=== PATIENT | male | born 1935 | race African-American/Black ===

== ENCOUNTER 2017-11-12 08:55 | Inpatient (IN) ==
[2017-11-12 10:41] LABS: Basophils % 0.3 % (0.0-0.8); Hematocrit 32.2 VOL% (42.0-52.0); Hemoglobin 10.3 GM/DL (14.0-18.0); Immature Granulocytes % 1.7 %; Immature Granulocytes Absolute 0.18 #; Lymphocytes # 2.3 10*3/uL (1.4-4.0); Lymphocytes % 21.4 % (21.2-54.2); Mean Corpuscular Hemoglobin 28 PG (27-34); Mean Corpuscular Volume 87.5 FL (87-102); Mean Platelet Volume 9.4 FL (9.6-12.0); Monocytes # 1.6 10*3/uL (0.11-0.8); Monocytes % 14.9 % (1.7-12.7); Neutrophils # 6.6 10*3/uL (1.4-7.4); Neutrophils % 61.7 % (38.7-73.9); Platelet Count 217 T/CUMM (130-400); Red Blood Count 3.68 MC/CUMM (3.8-5.5); Red Cell Distribution Width 15.4 % (9.3-17.3); White Blood Count 10.7 T/CUMM (4-12)
[2017-11-12 10:47] LABS: Apearance,Urine Slightly Hazy (Clear); Bilirubin,Urine Negative (Negative); Blood, Urine Small mg/dL (Negative); Glucose,Urine (UA) Negative (Negative); Ketones,Urine Negative (Negative); Mucus,Urine Occasional /LPF (Occasional); Nitrite,Urine Negative (Negative); Protein,Urine 100 MG/DL; RBC,Urine <1 /HPF (0-4); Urine Color Yellow (Yellow); Urine Specific Gravity 1.019 (1.001-1.035); Urine Urobilinogen < 2.0 EU/DL (0.2-1.0); WBC,Urine <1 /HPF (0-6)
[2017-11-12 11:22] LABS: Albumin 2.8 G/DL (3.4-5.0); Bilirubin,Total 0.8 MG/DL (0.2-1.0); Calcium 8.7 MG/DL (8.5-10.1); Osmolality,Calculated 271.1 MOS/KG (273-304); Potassium 4.1 MMOL/L (3.5-5.1); Total Protein 8.3 G/DL (6.4-8.3)
[2017-11-12 12:59] LABS: Immunoglobulin A 323 MG/DL (70-400); Immunoglobulin G 1810 MG/DL (700-1600); Immunoglobulin M 54 MG/DL (40-230)
[2017-11-12] MEDS ORDERED: LACTULOSE 20 GM/30 ML UDCUP PO PRN (13:23)
[2017-11-12] MEDS ORDERED: DOCUSATE SODIUM 100 MG CAPSULE PO PRN (13:23)
[2017-11-12] MEDS ORDERED: ONDANSETRON 4 MG/2 ML VIAL IV PRN (13:23)
[2017-11-12] MEDS ORDERED: MORPHINE 4 MG/1 ML VIAL IV PRN (13:23)
[2017-11-12] MEDS ORDERED: ACETAMINOPHEN 325 MG TABLET PO PRN (13:23)
[2017-11-12] MEDS ORDERED: ENOXAPARIN 40 MG/0.4 ML SYRINGE SUBCUT SCH (13:30)
[2017-11-12 16:26] LABS: Prostate Specific Antigen Diag 1232.3 NG/ML (0-4)
[2017-11-12] MEDS: DEXTROSE 5% NACL 0.45% 1,000 ML IV SCH (17:03)
[2017-11-13 05:15] LABS: Basophils % 0.3 % (0.0-0.8); Hematocrit 27.8 VOL% (42.0-52.0); Hemoglobin 9.1 GM/DL (14.0-18.0); Immature Granulocytes % 1.7 %; Immature Granulocytes Absolute 0.15 #; Lymphocytes # 1.6 10*3/uL (1.4-4.0); Lymphocytes % 17.9 % (21.2-54.2); Mean Corpuscular HGB Conc 32.7 GM/DL (32-36); Mean Corpuscular Hemoglobin 28 PG (27-34); Mean Corpuscular Volume 85.5 FL (87-102); Mean Platelet Volume 10.6 FL (9.6-12.0); Monocytes # 1.2 10*3/uL (0.11-0.8); Monocytes % 13.9 % (1.7-12.7); Neutrophils # 5.8 10*3/uL (1.4-7.4); Neutrophils % 66.2 % (38.7-73.9); Platelet Count 218 T/CUMM (130-400); Red Blood Count 3.25 MC/CUMM (3.8-5.5); Red Cell Distribution Width 15.5 % (9.3-17.3); White Blood Count 8.8 T/CUMM (4-12)
[2017-11-13] MEDS: DEXTROSE 5% NACL 0.45% 1,000 ML IV SCH (05:41)
[2017-11-13 06:06] LABS: Calcium 8.4 MG/DL (8.5-10.1); Osmolality,Calculated 267.4 MOS/KG (273-304); Potassium 4.2 MMOL/L (3.5-5.1)
[2017-11-13 08:24] LABS: Total Protein (Chem) 7.8 G/DL (6.4-8.3)
[2017-11-13 08:26] LABS: Immunoglobulin A (Chem) 323 MG/DL (70-400); Immunoglobulin G (Chem) 1810 MG/DL (700-1600); Immunoglobulin M (Chem) 54 MG/DL (40-230)
[2017-11-13] MEDS: PANTOPRAZOLE 40 MG TABLET PO SCH (09:33)
[2017-11-13 13:15] LABS: Albumin (SPE) 3.4 G/DL (3.2-5.3); Albumin (SPE) Rel % 43.2 %; Alpha 1 (SPE) 0.4 G/DL (0.1-0.4); Alpha 1 (SPE) Rel % 5.7 %; Alpha 2 (SPE) 1.2 G/DL (0.4-1.0); Alpha 2 (SPE) Rel % 15.5 %; Beta (SPE) 1.2 G/DL (0.5-1.1); Beta (SPE) Rel % 14.7 %; Gamma (SPE) 1.6 G/DL (0.7-1.7); Gamma (SPE) Rel % 20.9 %
[2017-11-13] MEDS: SODIUM CHLORIDE 0.9% 1,000 ML IV SCH (16:54)
[2017-11-13] MEDS: TAMSULOSIN 0.4 MG CAPSULE PO SCH (20:39)
[2017-11-13] MEDS: BICALUTAMIDE 50 MG TABLET PO SCH (20:39)
[2017-11-14] MEDS: SODIUM CHLORIDE 0.9% 1,000 ML IV SCH ×2 (02:56→13:34)
[2017-11-14 06:25] LABS: Calcium 8.4 MG/DL (8.5-10.1); Potassium 4.2 MMOL/L (3.5-5.1)
[2017-11-14] MEDS ORDERED: ENOXAPARIN 40 MG/0.4 ML SYRINGE SUBCUT ONE (09:00)
[2017-11-14] MEDS: TAMSULOSIN 0.4 MG CAPSULE PO SCH ×2 (09:34→20:14)
[2017-11-14] MEDS: BICALUTAMIDE 50 MG TABLET PO SCH (09:34)
[2017-11-14] MEDS: PANTOPRAZOLE 40 MG TABLET PO SCH (09:34)
[2017-11-14] MEDS ORDERED: IBUPROFEN 400 MG TABLET PO PRN (17:07)
[2017-11-14] MEDS ORDERED: ACETAMINOPHEN 325 MG TABLET PO PRN (17:08)
[2017-11-14] MEDS ORDERED: cefTRIAXone 1,000 MG in SYRINGE 1 EACH IV SCH (18:00)
[2017-11-14 21:30] LABS: Apearance,Urine CLEAR (Clear); Bilirubin,Urine Negative (Negative); Blood, Urine Small mg/dL (Negative); Glucose,Urine (UA) Negative (Negative); Ketones,Urine Negative (Negative); Mucus,Urine Occasional /LPF (Occasional); Nitrite,Urine Negative (Negative); Protein,Urine 30 MG/DL; RBC,Urine 1 /HPF (0-4); Squamous Epithelial Cell,Urine Occasional /HPF (0-10); Urine Color Yellow (Yellow); Urine Specific Gravity 1.015 (1.001-1.035); WBC,Urine 1 /HPF (0-6)
[2017-11-15] MEDS: SODIUM CHLORIDE 0.9% 1,000 ML IV SCH (01:36)
[2017-11-15 05:51] LABS: Basophils % 0.3 % (0.0-0.8); Eosinophils % 0.5 % (0.00-10.9); Hematocrit 25.6 VOL% (42.0-52.0); Hemoglobin 8.4 GM/DL (14.0-18.0); Immature Granulocytes % 2.3 %; Immature Granulocytes Absolute 0.18 #; Lymphocytes # 1.3 10*3/uL (1.4-4.0); Lymphocytes % 17.1 % (21.2-54.2); Mean Corpuscular HGB Conc 32.8 GM/DL (32-36); Mean Corpuscular Hemoglobin 28 PG (27-34); Mean Corpuscular Volume 86.2 FL (87-102); Mean Platelet Volume 10.5 FL (9.6-12.0); Monocytes % 12.4 % (1.7-12.7); Neutrophils # 5.2 10*3/uL (1.4-7.4); Neutrophils % 67.4 % (38.7-73.9); Platelet Count 203 T/CUMM (130-400); Red Blood Count 2.97 MC/CUMM (3.8-5.5); Red Cell Distribution Width 15.6 % (9.3-17.3); White Blood Count 7.8 T/CUMM (4-12)
[2017-11-15 06:04] LABS: Calcium 8.3 MG/DL (8.5-10.1); Osmolality,Calculated 270.8 MOS/KG (273-304)
[2017-11-15] MEDS ORDERED: MEPERIDINE 50 MG/1 ML VIAL IM ONE (07:00)
[2017-11-15] MEDS ORDERED: TOBRAMYCIN INJ 120 MG in SODIUM CHLORIDE 0.9% 100 ML IV ONE (07:00)
[2017-11-15] MEDS ORDERED: PROMETHAZINE 25 MG/1 ML VIAL IM ONE (07:00)
[2017-11-15] MEDS ORDERED: LIDOCAINE 2% TOP JELLY 20 ML VIAL INTRAURETH ONE (09:47)
[2017-11-15] MEDS: BICALUTAMIDE 50 MG TABLET PO SCH (10:20)
[2017-11-15] MEDS: PANTOPRAZOLE 40 MG TABLET PO SCH (10:21)
[2017-11-15] MEDS: TAMSULOSIN 0.4 MG CAPSULE PO SCH (10:21)
[2017-11-15 14:08] VITALS: BP 111/66
== END 2017-11-15 14:52 | disposition home health service (06) | DRG 723 ==
LOC: N.ED 08:55 → N.EDINP 13:19 → SUATTDRO 13:19 → N.EDINP 15:27 → N.4E 15:55
PROVIDERS: ADMIT Internal Medicine; ATTEND Internal Medicine

== ENCOUNTER 2018-12-18 08:41 | Inpatient (IN) ==
[2018-12-18] MEDS ORDERED: SODIUM CHLORIDE 0.9% 1,000 ML IV STA (09:25)
[2018-12-18] MEDS ORDERED: LEVOFLOXACIN INJ 750 MG in PREMIX 1 EACH IV STA (09:25)
[2018-12-18 09:59] LABS: Basophils # 0.1 10*3/uL (0.0-0.2); Basophils % 0.5 % (0.0-0.8); Eosinophils # 0.1 10*3/uL (0.0-0.87); Eosinophils % 1.2 % (0.00-10.9); Hematocrit 30.6 VOL% (42.0-52.0); Hemoglobin 9.2 GM/DL (14.0-18.0); Lymphocytes # 2.8 10*3/uL (1.4-4.0); Lymphocytes % 28.2 % (21.2-54.2); Mean Corpuscular HGB Conc 30.1 GM/DL (32-36); Mean Corpuscular Volume 98.4 FL (87-102); Mean Platelet Volume 10.5 FL (9.6-12.0); Monocytes % 12.9 % (1.7-12.7); NRBC # 0.03 10*3/uL; Neutrophils % 49.2 % (38.7-73.9); Platelet Count 126 T/CUMM (130-400); Red Blood Count 3.11 MC/CUMM (3.8-5.5); Red Cell Distribution Width 19.2 % (9.3-17.3)
[2018-12-18 10:21] LABS: Alanine Aminotransferase 22 U/L (16-61); Albumin 2.3 G/DL (3.4-5.0); Alkaline Phosphatase 268 U/L (45-117); Aspartate Amino Transferase 98 U/L (0-37); Blood Urea Nitrogen 11 MG/DL (7-18); Calcium 7.8 MG/DL (8.5-10.1); Glucose 96 MG/DL (74-106)
[2018-12-18 10:22] LABS: Band Neutrophils 23 % (0-10); Eosinophils 2 % (0-10); Lymphocytes 14 % (20-55); Platelet Estimate Adequate; Segmented Neutrophils 50 % (50-85); Total Cells Counted 100
[2018-12-18 10:23] LABS: Anisocytosis 1+; Poikilocytosis Slight; Polychromasia Slight; Smudge Cells Few; Tear Drop Cells Few
[2018-12-18] MEDS ORDERED: SODIUM CHLORIDE 0.9% 1,800 ML IV ONE (10:31)
[2018-12-18] MEDS: MEROPENEM 1,000 MG in SYRINGE 1 EACH IV SCH ×2 (11:05→19:31)
[2018-12-18 11:18] LABS: Apearance,Urine CLEAR (Clear); Bilirubin,Urine Negative (Negative); Blood, Urine Large mg/dL (Negative); Glucose,Urine (UA) Negative (Negative); Hyaline Casts,Urine 2 /LPF (0-3); Ketones,Urine 5 mg/dL (Negative); Mucus,Urine Occasional /LPF (Occasional); Nitrite,Urine Negative (Negative); Protein,Urine 100 MG/DL; RBC,Urine 724 /HPF (0-4); Urine Color Yellow (Yellow); Urine Specific Gravity 1.014 (1.001-1.035); Urine Urobilinogen < 2.0 EU/DL (0.2-1.0); WBC,Urine <1 /HPF (0-6)
[2018-12-18] MEDS ORDERED: DIGOXIN 0.5 MG/2 ML AMP IV ONE (12:54)
[2018-12-18] MEDS ORDERED: NOREPINEPHRINE 8 MG in SODIUM CHLORIDE 0.9% 242 ML IV PRN (13:06)
[2018-12-18 13:10] LABS: Risk Ratio 3.59; Thyroid Stimulating Hormone 0.999 uIU/ml (0.358-3.74); VLDL CHOLESTEROL 20.2 MG/DL
[2018-12-18] MEDS ORDERED: ALBUTEROL 2.5 MG/3 ML NEB RESP TX PRN (13:12)
[2018-12-18] MEDS ORDERED: ALUMINUM/MAGNES/SIMETH MAX STR 30 ML UDCUP PO PRN (13:12)
[2018-12-18] MEDS ORDERED: ACETAMINOPHEN 325 MG TABLET PO PRN (13:12)
[2018-12-18] MEDS ORDERED: MAGNESIUM HYDROXIDE SUSP 30 ML UDCUP PO PRN (13:12)
[2018-12-18] MEDS ORDERED: MAGNESIUM SULF RIDER 2 GM in PREMIX 1 EACH IV PRN (13:16)
[2018-12-18] MEDS ORDERED: MAGNESIUM SULF RIDER 4 GM in PREMIX 1 EACH IV PRN (13:16)
[2018-12-18] MEDS: SODIUM CHLORIDE 0.9% 1,000 ML IV SCH ×2 (13:21→22:00)
[2018-12-18] MEDS: PANTOPRAZOLE 40 MG TABLET PO SCH (13:59)
[2018-12-18] MEDS: VANCOMYCIN INJ 1,000 MG in SODIUM CHLORIDE 0.9% 250 ML IV SCH (14:00)
[2018-12-18] MEDS ORDERED: ONDANSETRON 4 MG/2 ML VIAL ONE (14:05)
[2018-12-18] MEDS ORDERED: ONDANSETRON 4 MG/2 ML VIAL IV PRN (14:12)
[2018-12-18] MEDS ORDERED: MORPHINE 4 MG/1 ML VIAL IV PRN (14:12)
[2018-12-18 15:46] LABS: Apearance,Urine CLEAR (Clear); Bilirubin,Urine Negative (Negative); Blood, Urine Large mg/dL (Negative); Glucose,Urine (UA) Negative (Negative); Ketones,Urine Negative (Negative); Mucus,Urine Occasional /LPF (Occasional); Nitrite,Urine Negative (Negative); Protein,Urine Negative; RBC,Urine 174 /HPF (0-4); Urine Color Yellow (Yellow); Urine Specific Gravity 1.011 (1.001-1.035); Urine Urobilinogen < 2.0 EU/DL (0.2-1.0); WBC,Urine 2 /HPF (0-6)
[2018-12-18] MEDS ORDERED: METOPROLOL TARTRATE 5 MG/5 ML VIAL IV ONE (17:47)
[2018-12-18] MEDS: METOPROLOL TARTRATE 25 MG TABLET PO SCH (20:52)
[2018-12-19] MEDS: VANCOMYCIN INJ 1,000 MG in SODIUM CHLORIDE 0.9% 250 ML IV SCH ×2 (01:03→14:59)
[2018-12-19] MEDS: MEROPENEM 1,000 MG in SYRINGE 1 EACH IV SCH ×3 (03:25→18:37)
[2018-12-19 05:45] LABS: Albumin 1.8 G/DL (3.4-5.0); Bilirubin,Total 0.6 MG/DL (0.2-1.0); Calcium 6.9 MG/DL (8.5-10.1); Osmolality,Calculated 273.7 MOS/KG (273-304); Total Protein 5.6 G/DL (6.4-8.3)
[2018-12-19 06:34] LABS: Basophils % 0.3 % (0.0-0.8); Eosinophils # 0.1 10*3/uL (0.0-0.87); Eosinophils % 1.1 % (0.00-10.9); Hematocrit 23.4 VOL% (42.0-52.0); Hemoglobin 7.1 GM/DL (14.0-18.0); Immature Granulocytes % 4.7 %; Immature Granulocytes Absolute 0.36 #; Lymphocytes # 2.2 10*3/uL (1.4-4.0); Lymphocytes % 28.4 % (21.2-54.2); Mean Corpuscular HGB Conc 30.3 GM/DL (32-36); Mean Corpuscular Volume 99.2 FL (87-102); Mean Platelet Volume 10.3 FL (9.6-12.0); Monocytes % 12.5 % (1.7-12.7); Red Blood Count 2.36 MC/CUMM (3.8-5.5); Red Cell Distribution Width 19.4 % (9.3-17.3); White Blood Count 7.6 T/CUMM (4-12)
[2018-12-19 06:36] LABS: Platelet Count 96 T/CUMM (130-400)
[2018-12-19 06:41] LABS: Anisocytosis 1+; Band Neutrophils 11 % (0-10); Eosinophils 1 % (0-10); Lymphocytes 29 % (20-55); Macrocytosis 1+; Metamyelocytes 1 %; Platelet Estimate Decreased; Polychromasia Few; Segmented Neutrophils 45 % (50-85); Total Cells Counted 100
[2018-12-19] MEDS: SODIUM CHLORIDE 0.9% 1,000 ML IV SCH ×2 (07:25→14:59)
[2018-12-19] MEDS ORDERED: SODIUM CHLORIDE 0.9% 1,000 ML IV PRN (08:58)
[2018-12-19] MEDS: PANTOPRAZOLE 40 MG TABLET PO SCH (10:35)
[2018-12-19] MEDS: METOPROLOL TARTRATE 25 MG TABLET PO SCH ×2 (10:35→20:57)
[2018-12-19] MEDS ORDERED: DOCUSATE SODIUM 100 MG CAPSULE PO PRN (19:21)
[2018-12-19] MEDS: POLYETHYLENE GLYCOL POWDER 17 GM PACK PO SCH (20:57)
[2018-12-19] MEDS: BICALUTAMIDE 50 MG TABLET PO SCH (20:57)
[2018-12-19] MEDS: CHOLECALCIFEROL 1,000 UNIT TABLET PO SCH (20:57)
[2018-12-19] MEDS: CALCIUM (CARBONATE) 500 MG TABLET PO SCH (20:58)
[2018-12-20 06:49] LABS: Basophils % 0.5 % (0.0-0.8); Eosinophils # 0.1 10*3/uL (0.0-0.87); Eosinophils % 1.1 % (0.00-10.9); Hematocrit 31.2 VOL% (42.0-52.0); Hemoglobin 9.8 GM/DL (14.0-18.0); Immature Granulocytes % 7.9 %; Immature Granulocytes Absolute 0.59 #; Lymphocytes # 2.1 10*3/uL (1.4-4.0); Lymphocytes % 27.8 % (21.2-54.2); Mean Corpuscular HGB Conc 31.4 GM/DL (32-36); Mean Corpuscular Volume 94.5 FL (87-102); Mean Platelet Volume 10.5 FL (9.6-12.0); Monocytes % 8.9 % (1.7-12.7); Neutrophils % 53.8 % (38.7-73.9); Platelet Count 115 T/CUMM (130-400); Red Cell Distribution Width 18.7 % (9.3-17.3); White Blood Count 7.5 T/CUMM (4-12)
[2018-12-20 07:15] LABS: Calcium 6.9 MG/DL (8.5-10.1); Osmolality,Calculated 270.8 MOS/KG (273-304)
[2018-12-20 07:54] LABS: Band Neutrophils 4 % (0-10); Eosinophils 2 % (0-10); Hypochromasia Slight; Lymphocytes 21 % (20-55); Metamyelocytes 1 %; Nucleated Red Blood Cells 1 (0-5); Platelet Estimate Adequate; Segmented Neutrophils 62 % (50-85); Total Cells Counted 100
[2018-12-20] MEDS: BICALUTAMIDE 50 MG TABLET PO SCH (08:44)
[2018-12-20] MEDS: POLYETHYLENE GLYCOL POWDER 17 GM PACK PO SCH (08:44)
[2018-12-20] MEDS: CHOLECALCIFEROL 1,000 UNIT TABLET PO SCH (08:44)
[2018-12-20] MEDS: METOPROLOL TARTRATE 25 MG TABLET PO SCH (08:44)
[2018-12-20] MEDS: PANTOPRAZOLE 40 MG TABLET PO SCH (08:44)
[2018-12-20] MEDS: CALCIUM (CARBONATE) 500 MG TABLET PO SCH (08:44)
[2018-12-20 11:51] VITALS: BP 109/62
== END 2018-12-20 13:32 | disposition home or self-care (01) | DRG 309 ==
LOC: N.ED 08:41 → N.EDINP 10:53 → SUATTDRO 10:53 → N.ICU 11:50 → N.4E 12-19 19:17
PROVIDERS: ADMIT Internal Medicine; ATTEND Internal Medicine

== ENCOUNTER 2019-01-11 13:29 | Inpatient (IN) ==
[2019-01-11 14:37] LABS: Basophils # 0.1 10*3/uL (0.0-0.2); Basophils % 0.7 % (0.0-0.8); Eosinophils % 0.2 % (0.00-10.9); Hematocrit 30.1 VOL% (42.0-52.0); Hemoglobin 9.2 GM/DL (14.0-18.0); Immature Granulocytes % 16.3 %; Immature Granulocytes Absolute 1.94 #; Mean Corpuscular HGB Conc 30.6 GM/DL (32-36); Mean Platelet Volume 10.3 FL (9.6-12.0); Monocytes % 11.9 % (1.7-12.7); NRBC # 0.15 10*3/uL; Neutrophils % 45.9 % (38.7-73.9); Platelet Count 110 T/CUMM (130-400); Red Blood Count 3.07 MC/CUMM (3.8-5.5); Red Cell Distribution Width 17.6 % (9.3-17.3); White Blood Count 11.9 T/CUMM (4-12)
[2019-01-11 14:51] LABS: Alanine Aminotransferase 87 U/L (16-61); Albumin 2.1 G/DL (3.4-5.0); Alkaline Phosphatase 354 U/L (45-117); Aspartate Amino Transferase 204 U/L (0-37); Blood Urea Nitrogen 19 MG/DL (7-18); Calcium 9.6 MG/DL (8.5-10.1); Glucose 106 MG/DL (74-106); Osmolality,Calculated 276.7 MOS/KG (273-304); Total Protein 7.3 G/DL (6.4-8.3)
[2019-01-11] MEDS ORDERED: LACTATED RINGERS 1,000 ML IV ONE (15:10)
[2019-01-11 15:35] LABS: Apearance,Urine Slightly Hazy (Clear); Bacteria,Urine Occasional /HPF (Few); Bilirubin,Urine Negative (Negative); Blood, Urine Small mg/dL (Negative); Glucose,Urine (UA) Negative (Negative); Ketones,Urine Negative (Negative); Mucus,Urine Occasional /LPF (Occasional); Nitrite,Urine Negative (Negative); Protein,Urine 100 MG/DL; RBC,Urine 17 /HPF (0-4); Squamous Epithelial Cell,Urine Occasional /HPF (0-10); Urine Color Amber (Yellow); WBC,Urine 4 /HPF (0-6)
[2019-01-11] MEDS ORDERED: LEVOFLOXACIN INJ 500 MG in PREMIX 1 EACH IV STA (15:54)
[2019-01-11 16:17] LABS: Band Neutrophils 2 % (0-10); Lymphocytes 31 % (20-55); Segmented Neutrophils 54 % (50-85); Total Cells Counted 100
[2019-01-11 16:19] LABS: Tear Drop Cells 1+
[2019-01-11 16:20] LABS: Microcytosis Slight
[2019-01-11] MEDS ORDERED: ALBUTEROL 2.5 MG/3 ML NEB RESP TX PRN (17:27)
[2019-01-11] MEDS ORDERED: ONDANSETRON 4 MG/2 ML VIAL IV PRN (17:27)
[2019-01-11] MEDS ORDERED: DOCUSATE SODIUM 100 MG CAPSULE PO PRN (17:34)
[2019-01-11] MEDS ORDERED: METOPROLOL TARTRATE 5 MG/5 ML VIAL IV STA (18:11)
[2019-01-11] MEDS ORDERED: LEVALBUTEROL 0.63 MG/3 ML NEB RESP TX PRN (19:00)
[2019-01-11] MEDS ORDERED: SODIUM CHLORIDE 0.9% 1,000 ML IV ONE (19:36)
[2019-01-11] MEDS: SODIUM CHLORIDE 0.9% 1,000 ML IV SCH (21:51)
[2019-01-11] MEDS: PANTOPRAZOLE 40 MG VIAL IV SCH (21:52)
[2019-01-11] MEDS: PIPERACILLIN/TAZOBACTAM 3,375 MG in SODIUM CHLORIDE 0.9% 100 ML IV SCH (21:52)
[2019-01-12] MEDS: PIPERACILLIN/TAZOBACTAM 3,375 MG in SODIUM CHLORIDE 0.9% 100 ML IV SCH ×2 (05:25→12:10)
[2019-01-12 05:57] LABS: Basophils % 0.4 % (0.0-0.8); Eosinophils % 0.1 % (0.00-10.9); Hematocrit 24.9 VOL% (42.0-52.0); Hemoglobin 7.8 GM/DL (14.0-18.0); Immature Granulocytes % 15.4 %; Immature Granulocytes Absolute 1.37 #; Lymphocytes # 1.5 10*3/uL (1.4-4.0); Lymphocytes % 17.3 % (21.2-54.2); Mean Corpuscular HGB Conc 31.3 GM/DL (32-36); Mean Platelet Volume 10.6 FL (9.6-12.0); Monocytes % 10.9 % (1.7-12.7); NRBC # 0.04 10*3/uL; Neutrophils % 55.9 % (38.7-73.9); Platelet Count 84 T/CUMM (130-400); Red Blood Count 2.54 MC/CUMM (3.8-5.5); Red Cell Distribution Width 17.7 % (9.3-17.3); White Blood Count 8.9 T/CUMM (4-12)
[2019-01-12 06:24] LABS: Band Neutrophils 6 % (0-10); Hypochromasia 1+; Lymphocytes 17 % (20-55); Metamyelocytes 3 %; Myelocytes 1 %; Ovalocytes Slight; Segmented Neutrophils 67 % (50-85); Total Cells Counted 100
[2019-01-12 06:25] LABS: Tear Drop Cells Slight
[2019-01-12 06:26] LABS: Atypical Lymphocytes Few; Macrocytosis 1+; Platelet Estimate Decreased
[2019-01-12 06:34] LABS: Risk Ratio 5.68
[2019-01-12 06:42] LABS: Albumin 1.8 G/DL (3.4-5.0); Bilirubin,Total 0.9 MG/DL (0.2-1.0); Calcium 7.9 MG/DL (8.5-10.1); Osmolality,Calculated 276.7 MOS/KG (273-304); Total Protein 6.5 G/DL (6.4-8.3)
[2019-01-12] MEDS: CALCIUM (CARBONATE) 500 MG TABLET PO SCH (08:06)
[2019-01-12] MEDS: CHOLECALCIFEROL 1,000 UNIT TABLET PO SCH (08:06)
[2019-01-12] MEDS: POLYETHYLENE GLYCOL POWDER 17 GM PACK PO SCH (08:06)
[2019-01-12] MEDS: ENOXAPARIN 40 MG/0.4 ML SYRINGE SUBCUT SCH (08:53)
[2019-01-12] MEDS ORDERED: SODIUM CHLORIDE 0.9% 1,000 ML IV PRN (13:56)
[2019-01-12] MEDS ORDERED: fentaNYL 12 MCG/HR PATCH TRANSDERM SCH (14:06)
[2019-01-12] MEDS ORDERED: ACETAMINOPHEN 650 MG SUPP RECTAL PRN (18:17)
[2019-01-12] MEDS: PANTOPRAZOLE 40 MG VIAL IV SCH (21:28)
[2019-01-13] MEDS: SODIUM CHLORIDE 0.9% 1,000 ML IV SCH (05:46)
[2019-01-13 06:18] LABS: Basophils # 0.1 10*3/uL (0.0-0.2); Basophils % 0.9 % (0.0-0.8); Eosinophils % 0.2 % (0.00-10.9); Hematocrit 30.1 VOL% (42.0-52.0); Hemoglobin 9.4 GM/DL (14.0-18.0); Immature Granulocytes % 11.9 %; Immature Granulocytes Absolute 1.14 #; Lymphocytes # 1.6 10*3/uL (1.4-4.0); Lymphocytes % 16.5 % (21.2-54.2); Mean Corpuscular HGB Conc 31.2 GM/DL (32-36); Mean Corpuscular Volume 93.8 FL (87-102); Mean Platelet Volume 11.1 FL (9.6-12.0); Monocytes % 9.1 % (1.7-12.7); NRBC # 0.17 10*3/uL; Neutrophils % 61.4 % (38.7-73.9); Platelet Count 92 T/CUMM (130-400); Red Blood Count 3.21 MC/CUMM (3.8-5.5); Red Cell Distribution Width 18.1 % (9.3-17.3); White Blood Count 9.6 T/CUMM (4-12)
[2019-01-13 06:38] LABS: Band Neutrophils 16 % (0-10); Hypochromasia 1+; Lymphocytes 17 % (20-55); Myelocytes 3 %; Nucleated Red Blood Cells 1 (0-5); Platelet Estimate Decreased; Segmented Neutrophils 58 % (50-85); Total Cells Counted 100
[2019-01-13 06:39] LABS: Microcytosis Slight; Ovalocytes Slight
[2019-01-13 06:40] LABS: Albumin 1.8 G/DL (3.4-5.0); Bilirubin,Total 1.4 MG/DL (0.2-1.0); Osmolality,Calculated 285.1 MOS/KG (273-304); Total Protein 6.3 G/DL (6.4-8.3)
[2019-01-13] MEDS: ENOXAPARIN 40 MG/0.4 ML SYRINGE SUBCUT SCH (10:28)
[2019-01-13] MEDS: CHOLECALCIFEROL 1,000 UNIT TABLET PO SCH (10:28)
[2019-01-13] MEDS: POLYETHYLENE GLYCOL POWDER 17 GM PACK PO SCH (10:28)
[2019-01-13] MEDS: CALCIUM (CARBONATE) 500 MG TABLET PO SCH (10:28)
[2019-01-13] MEDS: PANTOPRAZOLE 40 MG VIAL IV SCH (21:18)
[2019-01-14] MEDS: SODIUM CHLORIDE 0.9% 1,000 ML IV SCH ×2 (01:24→02:52)
[2019-01-14 04:37] LABS: Albumin 1.6 G/DL (3.4-5.0); Bilirubin,Total 1.4 MG/DL (0.2-1.0); Calcium 6.7 MG/DL (8.5-10.1); Osmolality,Calculated 297.3 MOS/KG (273-304)
[2019-01-14] MEDS: CALCIUM (CARBONATE) 500 MG TABLET PO SCH (11:24)
[2019-01-14] MEDS: POLYETHYLENE GLYCOL POWDER 17 GM PACK PO SCH (11:24)
[2019-01-14] MEDS: ENOXAPARIN 40 MG/0.4 ML SYRINGE SUBCUT SCH (11:24)
[2019-01-14] MEDS: CHOLECALCIFEROL 1,000 UNIT TABLET PO SCH (11:24)
[2019-01-14 12:46] VITALS: BP 103/64
== END 2019-01-14 14:10 | disposition hospice, home (50) | DRG 722 ==
LOC: N.ED 13:29 → N.EDINP 17:24 → N.4E 20:40
PROVIDERS: ADMIT Internal Medicine; ATTEND Urology